=== PATIENT | female | born 1955 | race Caucasian/White ===

== ENCOUNTER 2018-10-07 13:16 | Day surgery (SDC) | payer MEDICARE, SELFPAY ==
[2018-10-07 14:23] VITALS: BP 126/73; PULSE 59; RESP 15; TEMP 37.2; O2SAT 99; BMI 30.2
[2018-10-07] MEDS: PROPARACAINE 0.5% OPHTH SOL 2 DROPS EYE-OP (14:35)
[2018-10-07] MEDS: CATARACT EYE COMPOUND (10 DROPS/SYRINGE) 3 DROPS EYE-OP (14:37)
--- NOTE | 2018-10-07 15:20 | PM.PREOP ---
Pre-operative Note Interval Note History & Physical reviewed/Exam performed by Physician: Yes Changes to H&P: No
[2018-10-07] MEDS: MOXIFLOXACIN OPHTH DROPS 3 ML BOTTLE 2 DROPS INJ (15:53)
[2018-10-07] MEDS: CHONDROIDTIN/SOD HYALURONATE 1.05 ML SYRINGE INTRAOCULA (15:53)
[2018-10-07] MEDS: LIDOCAINE JELLY 2% 5 ML 1 APPLIC TOP (15:53)
[2018-10-07] MEDS: PHENYLEPHRINE/LIDOCAINE VIAL (OR) 0.2 ML EYE-OP (15:54)
[2018-10-07] MEDS: BALANCED SALT IRRIG SOLN NO.2 500 ML, EPINEPHrine 1 MG IRR (15:54)
--- NOTE | 2018-10-07 16:06 | PM.OP.1 ---
Procedure & Clinicians Procedure: Cataract extraction with intraocular lens implant, right Same procedure as scheduled: Yes Indications: Visually significant combined form cataract, right Surgeon: Bill Carmona Click Yes if Unassisted: Yes Anesthesia Type: MAC +/- Operative Notes Procedure in detail: The patient was brought to the operating suite. The correct patient, surgical site and lens were confirmed. 0.5 % tetracaine drops were placed in the right eye. The patient was prepped and draped in the typical sterile manner. A lid speculum was placed in the eye. 3.5% A paracentesis port was created with a side-port blade. 0.1 mL of 1% preservative free lidocaine was injected into the anterior chamber. Viscoelastic was injected into the anterior chamber. A 2.6mm keratome was used to create a clear corneal temporal incision. Cystotome and Utrata forceps were used to create a continuous curvilinear capsulorrhexis. Balanced salt solution was used to hydrodissect the nucleus. Phacoemulsification was used to remove the lens. The capsular bag was inflated with viscoelastic. A Linares ZBOO +14.5D lens was inserted into the capsule. Viscoelastic was removed and the wound hydrated. The wound was found to be leak free and the eye was assessed to be at normal physiologic pressure. 0.1mL Vigamox was injected into the anterior chamber. The lid speculum was removed and the patient left the operating room in excellent condition. Complications: none Condition: stable Disposition: same day surgery
[2018-10-07 16:10] VITALS: BP 126/72; PULSE 56; RESP 16; TEMP 36.4; O2SAT 99
--- NOTE | 2018-10-07 16:59 | SUR.PHASEII ---
Pt ambulated, sba, to ER entrance. Requested to wait for ride, son-in-law coming per pt. Pt denied that her car was here at the hospital.
== END 2018-10-07 16:55 | disposition home or self-care (01) ==
LOC: OR 13:17
PROVIDERS: PCP Family Medicine; Visit Provider Ophthalmology
DX: H25.11 Age-related nuclear cataract, right eye (principal); F41.9 Anxiety disorder, unspecified
CPT/HCPCS: J0171; J2250; J3010

== ENCOUNTER 2018-10-21 07:52 | Day surgery (SDC) | payer MEDICARE, SELFPAY ==
[2018-10-21 08:30] VITALS: BP 127/66; PULSE 56; RESP 15; TEMP 36.6; O2SAT 99; BMI 30.4
[2018-10-21] MEDS: PROPARACAINE 0.5% OPHTH SOL 2 DROPS EYE-OP (08:40)
[2018-10-21] MEDS: CATARACT EYE COMPOUND (10 DROPS/SYRINGE) 3 DROPS EYE-OP (08:46)
--- NOTE | 2018-10-21 09:19 | PM.PREOP ---
Pre-operative Note Interval Note History & Physical reviewed/Exam performed by Physician: Yes Changes to H&P: No
[2018-10-21] MEDS: PHENYLEPHRINE/LIDOCAINE VIAL (OR) 0.2 ML EYE-OP (09:42)
[2018-10-21] MEDS: CHONDROIDTIN/SOD HYALURONATE 1.05 ML SYRINGE INTRAOCULA (09:42)
[2018-10-21] MEDS: MOXIFLOXACIN OPHTH DROPS 3 ML BOTTLE 2 DROPS INJ (09:42)
[2018-10-21] MEDS: BALANCED SALT IRRIG SOLN NO.2 500 ML, EPINEPHrine 1 MG IRR (09:43)
[2018-10-21] MEDS: TETRACAINE 0.5% OPHTH DROPS 4 ML 2 DROPS EYE-LEFT (09:44)
[2018-10-21] MEDS: LIDOCAINE 2% INJ SDV 5 ML INJ (09:45)
--- NOTE | 2018-10-21 09:56 | P.OP_ITS ---
Procedure & Clinicians Procedure: cataract extraction with intraocular lens implant, left Same procedure as scheduled: Yes Indications: visually significant cataract nuclear sclerosis, left Surgeon: Bill Carmona Click Yes if Unassisted: Yes Anesthesia Type: MAC +/- Operative Notes Procedure in detail: The patient was brought to the operating suite. The correct patient, surgical site and lens were confirmed. 0.5 % tetracaine drops were placed in the left eye. The patient was prepped and draped in the typical sterile manner. A lid speculum was placed in the eye. 2% preservative free lidocaine was placed on the eye. A paracentesis port was created with a side- port blade. 0.1 mL of 1% preservative free lidocaine with phenylephrine was injected into the anterior chamber. Viscoelastic was injected into the anterior chamber. A 2.6mm keratome was used to create a clear corneal temporal incision. Cystotome and Utrata forceps were used to create a continuous curvilinear capsulorrhexis. Balanced salt solution was used to hydrodissect the nucleus. Phacoemulsification was used to remove the lens. The capsular bag was inflated with viscoelastic. A Linares ZBOO +14.0D lens was inserted into the capsule. Viscoelastic was removed and the wound hydrated. The wound was found to be leak free and the eye was assessed to be at normal physiologic pressure. 0.1mL Vigamox was injected into the anterior chamber. The lid speculum was removed and the patient left the operating room in excellent condition. Complications: none Condition: stable Disposition: same day surgery
[2018-10-21 09:58] VITALS: BP 140/73; PULSE 57; RESP 16; TEMP 36.4; O2SAT 99
== END 2018-10-21 10:13 ==
LOC: OR 07:57
PROVIDERS: PCP Family Medicine; Visit Provider Ophthalmology
DX: H25.12 Age-related nuclear cataract, left eye (principal); F41.9 Anxiety disorder, unspecified
CPT/HCPCS: J0171; J2250

== ENCOUNTER → 2018-11-22 15:36 | Outpatient (CLI) | payer MEDICARE, SELFPAY ==
--- NOTE | 2018-11-22 15:37 | DI.US.S_ITS ---
PROCEDURE: US THYROID INDICATIONS: thyroid nodule TECHNIQUE: Real-time scanning was performed of the thyroid gland, with image documentation. COMPARISON: None. FINDINGS: Right: Thyroid lobe measures 3.6 x 1.2 x 1.5 cm. Left: Thyroid lobe measures 3.8 by 1 by 1.4 cm, and is homogenous in echotexture. Isthmus: 3 mm thick. Nodule number: 1 Location: Right mid thyroid Size: 0.8 x 0.4 x 0.5 cm. Composition: Solid. Increased vascularity is seen. Echogenicity: Hypoechoic Shape: wider than tall. Margins: Smooth Echogenic foci: None Total points: 4 ACR TI-RADS category: 4, moderately suspicious. By published criteria, no followup is recommended for a nodule of this size. IMPRESSION: There is a subcentimeter right thyroid nodule seen. Based upon published criteria, no specific imaging followup is recommended. ACR TI-RADS definitions and recommendations: TI-RADS 1 (benign): 0 points. FNA not needed. TI-RADS 2 (not suspicious): 2 points. FNA not needed. TI-RADS 3 (mildly suspicious): 3 points. * FNA if 2.5 cm or larger, follow up if 1.5 cm or larger (at 1, 3, and 5 years). TI-RADS 4 (moderately suspicious): 4-6 points. * FNA if 1.5 cm or larger, follow up if 1 cm or larger (at 1, 2, 3, and 5 years). TI-RADS 5 (highly suspicious): 7 points or more. * FNA if 1 cm or larger, follow up if 0.5 cm or larger (every year for 5 years). Dictated by: Shree Schwartz M.D. on 11/22/2018 at 16:52 Approved by: Shree Schwartz M.D. on 11/22/2018 at 16:54
== END ==
PROVIDERS: PCP Family Medicine; Visit Provider Family Medicine
DX: E04.1 Nontoxic single thyroid nodule (principal); E03.9 Hypothyroidism, unspecified
CPT/HCPCS: 76536

== ENCOUNTER → 2018-12-07 12:00 | Outpatient (CLI) | payer MEDICARE, SELFPAY ==
[2018-12-07 13:21] LABS: Add Manual Diff / Slide Review NO; Basophils Absolute Auto 0 /uL (0-100); Basophils Percent Auto 0.5 % (0-2); Eosinophils Absolute Auto 100 /uL (0-450); Eosinophils Percent Auto 1.5 % (2-4); Hematocrit 35.5 % (36-46); Hemoglobin 12.2 g/dL (12.0-16.0); Lymphocytes Absolute Auto 1500 /uL (1100-4500); Lymphocytes Percent Auto 31.7 % (25-40); Mean Corpuscular HGB Conc 34.4 % (30-36); Monocytes Absolute Auto 400 /uL (0-900); Neutrophils Absolute Auto 2800 /uL (1500-7000); Neutrophils Percent Auto 58.3 % (50-75); Platelet Count 232 X10^3/uL (150-400); Red Cell Distribution Width 12.8 % (11.6-14.8); White Blood Cell Count 4.9 X10^3/uL (4.5-11.0)
[2018-12-07 14:03] LABS: Alanine Aminotransferase 31 IU/L (9-52); Albumin 4.3 g/dL (3.5-5.0); Albumin Globulin Ratio 1.4 (1.0-2.8); Alkaline Phosphatase 60 U/L (38-126); Aspartate Aminotransferase 28 IU/L (14-36); BUN Creatinine Ratio 25.7 (6-22); Bilirubin Total 0.8 mg/dL (0.2-1.3); Blood Urea Nitrogen 18 mg/dL (7-17); Calcium 8.9 mg/dL (8.4-10.2); Carbon Dioxide 27 mmol/L (22-32); Chloride 104 mmol/L (98-107); Cholesterol 175 mg/dL (140-199); Estimated Glomerular Filt Rate > 60.0 mL/min (>60); Glucose 92 mg/dL (80-110); HDL Cholesterol 57 mg/dL (40-60); HEMOLYSIS < 15 (0-50); LDL Cholesterol Calculated 99 mg/dL (<100); Potassium 3.8 mmol/L (3.4-5.1); Sodium 141 mmol/L (137-145); Total Protein 7.3 g/dL (6.3-8.2); Triglycerides 93 mg/dL (35-150)
[2018-12-07 14:24] LABS: Free T3, Triiodothyronine Free 3.38 pg/mL (2.77-5.27); Free T4, Direct Thyroxine 1.52 ng/dL (0.78-2.19)
[2018-12-07 14:37] LABS: Thyroid Stimulating Hormone 0.67 uIU/mL (0.47-4.68)
[2018-12-07 15:27] LABS: Microalbumi Creatinin Ratio Ur 14.9 ug/mg CR (<30); Microalbumin Urine Random 4.2 mg/dL (0-1.6)
[2018-12-07 15:38] LABS: Vitamin D 25 Hydroxy (D3) 19.5 ng/mL (30.0-100.0)
== END ==
PROVIDERS: PCP Family Medicine; Visit Provider Family Medicine
DX: E03.9 Hypothyroidism, unspecified (principal); E04.1 Nontoxic single thyroid nodule; N28.9 Disorder of kidney and ureter, unspecified; R89.9 Unspecified abnormal finding in specimens from other organs, systems and tissues; R94.5 Abnormal results of liver function studies; Z87.19 Personal history of other diseases of the digestive system
CPT/HCPCS: 36415; 80053; 80061; 82043; 82306; 82570; 84439; 84443; 84481; 85025

== ENCOUNTER 2019-01-27 07:10 | Day surgery (SDC) | payer MEDICARE, SELFPAY ==
--- NOTE | 2019-01-27 07:14 | PM.HP.1 ---
History of Present Illness Date Patient Seen: 01/27/19 Time Patient Seen: 07:14 Chief complaint: [id number] SCREENING COLONOSCOPY Narrative: 64yo for surveillance colonoscopy. Had a scope in 2005 with polyps removed. No symptoms in patient, no definite family history of CRC but she says her father had a partial colectomy and she thinks had 'lots of polyps'. Patient says she had a surgery for a diaphgragmatic hernia last year which she believes involved her colon but it was not resected. Of note, pt would like to attempt the procedure without sedation as she does not like the feeling of not being in control and says she has done this previously. 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) Hayfever (Chronic) Vitreous degeneration (Chronic 07/2006) Colon polyps (Resolved 2005) Fall at home (Resolved 02/19/12) Fractured coccyx (Resolved 02/16/08) Hepatitis (Resolved 1987) Hiatal hernia (Resolved 2007) Menopause (Resolved 1988) Surgical History History of colonoscopy with polypectomy (Resolved 2005) History of hernia repair (Resolved 02/06/18) History of repair of hiatal hernia (Resolved 05/15/08) Status post arthroscopy (Resolved 07/21/91) Status post arthroscopy (Resolved 05/17/08) Status post tonsillectomy and adenoidectomy (Resolved 1957) Family History (Updated 08/04/18 @ 14:21 by Neva Armstrong) Father Alcoholism Gastric ulcer Parkinson's disease History of colectomy Mother Bariatric surgery status May Hegglin syndrome Son Age: 37 No problems noted. Daughter Age: 35 No problems noted. Social History household members: family Smoking Status: Never smoker Family & Social History Family History Father Alcoholism Gastric ulcer Parkinson's disease History of colectomy Mother Bariatric surgery status May Hegglin syndrome Son Age: 37 No problems noted. Daughter Age: 35 No problems noted. Social History: household members family Tobacco & Substance use: Smoking Status Never smoker Meds Home Medications Medication Instructions Recorded Confirmed Type BETAINE HCL/FOLIC ACID/METHY 1 cap PO Q DAY #0 04/06/12 11/18/18 History (#B6-FOLIC ACID) CYANOCOBALAMIN (VITAMIN B-12) 1 tab PO Q DAY #0 04/06/12 11/18/18 History (Vitamin B-12) Fish Oil 1,000 mg PO Q DAY #0 04/06/12 11/18/18 History MULTIVITAMIN (#MULTIPLE VITAMINS) 1 cap PO #0 04/06/12 11/18/18 History VITAMIN D (Vitamin D3) 1,000 unit PO QDAY #0 04/06/12 11/18/18 History niacin [Slo-Niacin] 500 mg PO Q DAY #0 02/14/13 11/18/18 History ibuprofen 400 mg PRN 10/07/18 11/18/18 History levothyroxine 75 mcg tablet 75 mcg PO QDAY #90 tab 12/08/18 Rx alprazolam 0.25 mg PO TID PRN 01/27/19 01/27/19 History citalopram 40 mg PO QDAY 01/27/19 01/27/19 History diphenhydramine HCl 25 mg PO Q4-6H PRN 01/27/19 01/27/19 History ibuprofen 200 mg PO Q4-6H PRN 01/27/19 01/27/19 History Allergies Allergy/AdvReac Type Severity Reaction Status Date / Time WALNUT POLLEN Allergy Severe EYE Uncoded 11/18/18 13:22 SWELLING POLLENS Allergy Intermediate RUNNY NOSE Uncoded 11/18/18 13:22 Review of Systems Constitutional Constitutional: Reports as per HPI Exam Vital Signs (past 8 hours): AAO, NAD, overweight female EOMI, MMM unlabored RA soft, nt/nd MAEW Assessment & Plan (1) History of colon polyps: Current visit: Yes Status: Acute Assessment & Plan narrative: - surveillance colonoscopy --> all R/B/A discussed and pt wishes to proceed
[2019-01-27 07:42] VITALS: BP 125/79; PULSE 64; RESP 16; TEMP 36.6; O2SAT 98; BMI 27.8
[2019-01-27] MEDS: SODIUM CHLORIDE 0.9% 1,000 ML 200 ML IV (07:57)
[2019-01-27] MEDS: MIDAZOLAM 5 MG/5 ML VIAL IV (09:05)
[2019-01-27] MEDS: fentaNYL 250 MCG/5 ML INJ IV (09:06)
--- NOTE | 2019-01-27 09:06 | SUR.OPER ---
Patient wanted to proceed with procedure without sedation medication. Patient did request sedation meds during the case and they were given (See Flowsheet).
[2019-01-27 09:25] VITALS: BP 106/61; PULSE 64; RESP 16; TEMP 36.6; O2SAT 98
--- NOTE | 2019-01-27 09:54 | SUR.PHASEII ---
pt bypassed PACU, awake on arrival. left when ready left in stable condition.
--- NOTE | 2019-01-27 10:02 | SUR.PHASEII ---
addendum, belly soft, tolerated fluids.
--- NOTE | 2019-01-27 14:51 | PM.OP.ENDO ---
Operative Date/Time/Diagnoses Date of procedure: 01/27/19 Time of procedure: 09:52 Pre-op diagnosis: History of polyps. Post-op diagnosis: same Procedure & Clinicians Study performed: Surveillance colonoscopy. Same procedure as scheduled: Yes Indications: 64yo F with history of colon polyps removed in 2005 with no subsequent follow up. She is not sure but thinks her father may have had CRC. Patient requests to attempt the procedure without sedation and says she has done this in the past. She does understand it is available if needed. Surgeon: Columba Reid Procedure Notes SCOAP/Timeout: 827 Procedure in detail: After obtaining informed consent, the patient was brought to the GI suite and placed in the left lateral decubitus position on the examination table. After placement of appropriate monitors, a time out was held per SCOAP protocol. A digital rectal examination was performed and did not reveal any masses or obstructing lesions but small external hemorrhoids are noted. The colonoscope was gently passed into the patient's anus and the entire colon navigated to the level of the cecum with moderate difficulty due to a long and tortuous colon. After 27 minutes, patient requested mild sedation. Prep was adequate. Once in the cecum, the scope was slowly withdrawn being sure to go before and beyond all mucosal folds and prominences as able to get a thorough examination. No masses or polyps are noted. Other findings include diverticulosis, moderate volume in the sigmoid and a few scattered throughout her colon. At the level of the rectal vault, the scope was retroflexed and the internal anal canal was examined. The scope was straightened and air aspirated from the colon. The instrument was removed from the patient's body and the procedure was concluded. The patient was allowed to awaken from sedation without difficulty and taken to the post-anesthesia care unit in good condition. Scope withdrawal time: 9 min Sedation minutes: 17 Findings: diverticulosis Specimen(s): none sent Complications: none Impression: 1. Scattered diverticulosis throughout colon with moderate amount in sigmoid Recommendations: Colonscopy in 10 years and High fiber diet Follow up: as needed Disposition: PACU
== END 2019-01-27 09:20 | disposition home or self-care (01) ==
PROVIDERS: PCP Family Medicine; Visit Provider Surgery
PROC: 0DJD8ZZ Inspection of Lower Intestinal Tract, Via Natural or Artificial Opening Endoscopic (ICD-10-PCS; CPT 45378; principal; 2019-01-27 08:45)
DX: Z86.010 Personal history of colon polyps (principal); K57.30 Diverticulosis of large intestine without perforation or abscess without bleeding
CPT/HCPCS: G0105; 99152; J2250; J3010

== ENCOUNTER → 2019-02-10 14:35 | Outpatient (CLI) | payer MEDICARE, SELFPAY ==
--- NOTE | 2019-02-10 14:36 | DI.MG.S_ITS ---
BILATERAL DIGITAL SCREENING MAMMOGRAM 3D/2D WITH CAD: 02/10/2019 CLINICAL: Routine screening. Comparison is made to exam dated: 04/22/2012 [facility]. The tissue of both breasts is heterogeneously dense. This may lower the sensitivity of mammography. Current study was also evaluated with a Computer Aided Detection (CAD) system. No significant masses, calcifications, or other findings are seen in either breast. There has been no significant interval change. IMPRESSION: NEGATIVE There is no mammographic evidence of malignancy. A 1 year screening mammogram is recommended. This exam was interpreted at Station ID: [id number]. NOTE: For mammograms, a report in lay terms will be sent to the patient. Approximately 15% of breast malignancies will not be visualized mammographically. In the management of a palpable breast mass, a negative mammogram must not discourage biopsy of a clinically suspicious lesion. Electronically Signed By: Oliverio castro/beth:02/10/2019 17:02:00 letter sent: Normal Exam ACR BI-RADS Category 1: Negative 3341F
== END ==
PROVIDERS: PCP Family Medicine; Visit Provider Family Medicine
DX: Z12.31 Encounter for screening mammogram for malignant neoplasm of breast (principal); Z78.0 Asymptomatic menopausal state; E07.9 Disorder of thyroid, unspecified
CPT/HCPCS: 77063; 77067; 77080

== ENCOUNTER → 2020-04-16 14:47 | Outpatient (CLI) | payer MEDICARE, SELFPAY ==
[2020-04-16 15:57] LABS: TSH w/ Reflex to FT4 1.51 uIU/mL (0.47-4.68)
== END ==
PROVIDERS: PCP Family Medicine; Referring Provider Family Medicine; Visit Provider Family Medicine
DX: E03.9 Hypothyroidism, unspecified (principal)
CPT/HCPCS: 36415; 84443

== ENCOUNTER → 2021-05-15 11:37 | Outpatient (CLI) | payer MEDICARE, SELFPAY ==
[2021-05-15 12:49] LABS: BUN Creatinine Ratio 25.8 (6-22); Blood Urea Nitrogen 17 mg/dL (7-17); Calcium 9.5 mg/dL (8.4-10.2); Carbon Dioxide 29 mmol/L (22-32); Chloride 105 mmol/L (98-107); Estimated Glomerular Filt Rate > 60.0 mL/min (>60); Glucose 99 mg/dL (80-110); HEMOLYSIS < 15 (0-50); Potassium 4.5 mmol/L (3.4-5.1); Sodium 140 mmol/L (137-145)
[2021-05-15 16:43] LABS: TSH w/ Reflex to FT4 1.98 uIU/mL (0.47-4.68)
== END ==
PROVIDERS: PCP Family Medicine; Referring Provider Family Medicine; Visit Provider Family Medicine
DX: E04.1 Nontoxic single thyroid nodule (principal); Z13.1 Encounter for screening for diabetes mellitus
CPT/HCPCS: 36415; 80048; 84443

== ENCOUNTER → 2022-05-08 16:31 | Outpatient (CLI) | payer MEDICARE, SELFPAY ==
[2022-05-08 17:12] LABS: Add Manual Diff / Slide Review NO; Basophils Absolute Auto 0 /uL (0-100); Basophils Percent Auto 0.7 % (0-2); Eosinophils Absolute Auto 100 /uL (0-450); Hematocrit 33.8 % (36-46); Hemoglobin 11.8 g/dL (12.0-16.0); Lymphocytes Absolute Auto 1800 /uL (1100-4500); Lymphocytes Percent Auto 35.6 % (25-40); Mean Corpuscular Hemoglobin 33.3 PG (26-34); Mean Corpuscular Volume 95.3 fL (80-100); Monocytes Absolute Auto 500 /uL (0-900); Neutrophils Absolute Auto 2700 /uL (1500-7000); Neutrophils Percent Auto 52.7 % (50-75); Platelet Count 223 X10^3/uL (150-400); Red Blood Cell Count 3.55 X10^6/uL (4.0-5.2); Red Cell Distribution Width 12.5 % (11.6-14.8); White Blood Cell Count 5.1 X10^3/uL (4.5-11.0)
[2022-05-08 20:44] LABS: Alanine Aminotransferase 20 IU/L (<35); Albumin 4.1 g/dL (3.5-5.0); Albumin Globulin Ratio 1.6 (1.0-2.8); Alkaline Phosphatase 54 U/L (38-126); Aspartate Aminotransferase 28 IU/L (14-36); BUN Creatinine Ratio 34.8 (6-22); Bilirubin Total 0.5 mg/dL (0.2-1.3); Blood Urea Nitrogen 23 mg/dL (7-17); Calcium 8.8 mg/dL (8.4-10.2); Carbon Dioxide 30 mmol/L (22-32); Chloride 106 mmol/L (98-107); Cholesterol 178 mg/dL (140-199); Estimated Glomerular Filt Rate > 60 mL/min (>60); Globulin 2.6 g/dL (1.7-4.1); Glucose 89 mg/dL (80-110); HDL Cholesterol 60 mg/dL (40-60); HEMOLYSIS < 15 (0-50); LDL Cholesterol Calculated 101 mg/dL (<100); Potassium 3.8 mmol/L (3.4-5.1); Sodium 142 mmol/L (137-145); Total Protein 6.7 g/dL (6.3-8.2); Triglycerides 84 mg/dL (35-150)
[2022-05-08 21:00] LABS: TSH w/ Reflex to FT4 1.03 uIU/mL (0.47-4.68)
== END ==
PROVIDERS: PCP Pediatrics; Referring Provider Pediatrics; Visit Provider Pediatrics
DX: E03.9 Hypothyroidism, unspecified (principal); M19.90 Unspecified osteoarthritis, unspecified site
CPT/HCPCS: 36415; 80053; 80061; 84443; 85025

== ENCOUNTER → 2022-10-29 09:35 | Outpatient (CLI) | payer MEDICARE, SELFPAY ==
--- NOTE | 2022-11-21 16:12 | PM.CARDMON.1 ---
[facility] Report Referral & Results Date Patient Seen: 10/29/22 Requesting provider: Roseline Flores Indication: TIA Duration of monitoring (days): 14 Diary information: There were 8 patient triggered events and 5 patient diary entries All 13 of these patient events were variably associated with sinus rhythm as well as PACs Data: Minimum heart rate identified was 47 beats per minute at 00:38 on 11/09/2022 Maximum sinus heart rate was 141 beats per minute at 15:35 on 11/05/2022 Maximum overall heart rate was 176 beats per minute at 15:03 on 11/05/2022 during a run of SVT Approximately 5% of identified beats were supraventricular ectopic in origin which would classify them as frequent Less than 1% of identified beats were ventricular ectopic in origin which would classify them as rare There were 58 runs of SVT noted with the fastest being a 16 beat run at the above 176 beats per minute, the longest lasting 12.6 seconds at an average rate of 113 beats per minute which suggest possible atrial tachycardia rather than true SVT There were no pauses of 3 seconds or longer or episodes of atrial fibrillation identified on this study Impression: 13+ day alarm security or surveillance monitor demonstrating frequent PACs and very rare very brief runs of SVT as above
== END ==
PROVIDERS: PCP Family Medicine; Referring Provider Family Medicine; Visit Provider Family Medicine
DX: Z86.73 Personal history of transient ischemic attack (TIA), and cerebral infarction without residual deficits (principal)
CPT/HCPCS: 93246; 93248

== ENCOUNTER → 2023-03-18 16:21 | Outpatient (CLI) | payer MEDICARE, SELFPAY ==
[2023-03-18 17:16] LABS: Add Manual Diff / Slide Review NO; Basophils Absolute Auto 0 /uL (0-100); Basophils Percent Auto 0.5 % (0-2); Eosinophils Absolute Auto 200 /uL (0-450); Eosinophils Percent Auto 2.9 % (2-4); Hematocrit 34.3 % (36-46); Lymphocytes Absolute Auto 2000 /uL (1100-4500); Lymphocytes Percent Auto 32.9 % (25-40); Mean Corpuscular HGB Conc 34.9 % (30-36); Mean Corpuscular Volume 97.6 fL (80-100); Monocytes Absolute Auto 600 /uL (0-900); Neutrophils Absolute Auto 3300 /uL (1500-7000); Neutrophils Percent Auto 53.7 % (50-75); Platelet Count 223 X10^3/uL (150-400); Red Blood Cell Count 3.52 X10^6/uL (4.0-5.2); Red Cell Distribution Width 12.7 % (11.6-14.8); White Blood Cell Count 6.1 X10^3/uL (4.5-11.0)
[2023-03-18 17:31] LABS: BUN Creatinine Ratio 33.7 (6-22); Blood Urea Nitrogen 33 mg/dL (7-17); Calcium 9.1 mg/dL (8.4-10.2); Carbon Dioxide 28 mmol/L (22-32); Chloride 103 mmol/L (98-107); Estimated Glomerular Filt Rate > 60 mL/min (>60); Glucose 113 mg/dL (80-110); HEMOLYSIS < 15 (0-50); Potassium 3.9 mmol/L (3.4-5.1); Sodium 138 mmol/L (137-145)
== END ==
PROVIDERS: PCP Family Medicine; Referring Provider Family Medicine; Visit Provider Family Medicine
DX: D64.9 Anemia, unspecified (principal); E03.9 Hypothyroidism, unspecified
CPT/HCPCS: 36415; 80048; 85025